=== PATIENT | female | born 1950 | race Two or more races ===

== ENCOUNTER 2022-11-13 08:00 | Outpatient (CLI) | payer OTHER ==
[~2022-11-13] VITALS: Ht 167.6 cm; Wt 70.8 kg
[2022-11-13] MEDS ORDERED: GLUCOVAN (15:22)
[2022-11-13] MEDS ORDERED: GABAPENTIN300 M2 PO (15:23)
== END 2022-11-13 14:06 | disposition home or self-care (01) ==
LOC: LAB 08:00 → SURG 11-17 07:00 → EDSTATUS 11-17 11:00
PROVIDERS: ATTEND Orthopaedic Surgery Sports Medicine
DX: Z01.812 Encounter for preprocedural laboratory examination (principal); M17.12 Unilateral primary osteoarthritis, left knee

== ENCOUNTER 2023-02-23 07:48 | Outpatient (CLI) | payer OTHER ==
[~2023-02-23 07:48] MED LIST: GABAPENTIN300 M2 PO; GLUCOVAN
== END 2023-02-23 07:54 | disposition home or self-care (01) ==
LOC: NUCLEAR 07:48
PROVIDERS: ATTEND Internal Medicine
DX: R00.2 Palpitations (principal); E11.9 Type 2 diabetes mellitus without complications; G62.9 Polyneuropathy, unspecified
CPT/HCPCS: 78452; 93017; A9500; J0153

== ENCOUNTER 2024-04-01 08:15 | Inpatient (IN) | payer OTHER ==
[~2024-04-01] VITALS: Ht 167.6 cm; Wt 71.7 kg
[2024-04-01 10:57] LABS: URINE APPEARANCE Clear; URINE BILIRRUBIN Negative (NEGATIVE); URINE BLOOD Negative; URINE COLOR Yellow; URINE GLUCOSE Negative (NEGATIVE); URINE KETONE Negative (NEGATIVE); URINE LEUKOCYTE Small; URINE NITRATE Negative; URINE PROTEIN Trace (NEGATIVE); URINE UROBILINOGEN 0.2 E.U./dl
[2024-04-01 10:59] LABS: HEMATOCRIT 33.7 % (36.0-45.00); HEMOGLOBIN 11.6 g/dL (12.0-15.00); MEAN CELL VOLUME 89.9 fL (80.00-100.00); MEAN CORPUSCULAR HEMOGLOBIN 30.8 pg (27.00-32.0); MEAN CORPUSCULAR HGB CONC 34.3 g/dl (32.0-36.0); PLATELET COUNT 247 K/uL (150-450); RED BLOOD COUNT 3.75 M/uL (4.00-6.00); RED CELL DISTRIBUTION WIDTH 14.3 % (11.5-14.5); URINE EPITHELIAL CELLS 33.2 uL (0.0-38.8); URINE WBC 76.1 uL (0.0-23.2)
[2024-04-01 11:03] LABS: URINE CAST 0.15 uL (0.0-1.40); URINE RBC 1.3 uL (0.0-20.8)
[2024-04-01] MEDS ORDERED: CATAFLAN (11:03)
[2024-04-01 11:54] LABS: INR 1.01; PARTIAL THROMBOPLASTIN TIME 28.8 SECONDS (22.0-34.0)
[2024-04-01 12:00] LABS: BILIRUBIN TOTAL 0.37 mg/dL (0.3-1.2); CALCIUM 9.6 mg/dL (8.5-10.1); CREATININE SERUM 1.01 mg/dL (0.55-1.02); GFR 53.88; GLOBULINA 3.3 G/DL (2.4-3.5); POTASSIUM 4.63 mEq/L (3.5-5.1); TOTAL PROTEIN 7.3 gm/dL (6.4-8.2)
[2024-04-04 09:58] LABS: RH POSITIVE
[2024-04-04] MEDS ORDERED: LIDOCAINE HCL 1%/EPINEPHRINE 20ML VIAL IJ ONE (21:00)
[2024-04-04] MEDS ORDERED: TRANEXAMIC ACID 100MG/1ML (1000MG) AMPUL IV ONE ×2 (21:00→21:15)
[2024-04-04] MEDS ORDERED: BUPIVACAINE HCL/PF 0.25% 30ML VIAL InF ONE (21:00)
[2024-04-04] MEDS ORDERED: MORPHINE SULFATE 4 MG/ML VIAL IV ONE ×3 (21:00→22:55)
[2024-04-04] MEDS ORDERED: KETOROLAC TROMETHAMINE 60 MG VIAL IM ONE (21:00)
[2024-04-04] MEDS ORDERED: CEFAZOLIN SODIUM 1,000 MG VIAL IV ONE (21:00)
[2024-04-04] MEDS ORDERED: ISOPROPYL ALCOHOL 30 ML OUNCE TOP ONE (21:15)
[2024-04-04] MEDS ORDERED: GENTAMICIN SULFATE 40 MG/ML VIAL IV SCH (21:54)
[2024-04-04] MEDS ORDERED: MORPHINE SULFATE 4 MG/ML CARTRIDGE IV PRN (22:00)
[2024-04-04] MEDS ORDERED: SODIUM CHLORIDE 0.45 % 1,000 ML IV SCH (22:00)
[2024-04-04] MEDS ORDERED: ONDANSETRON HCL 2 MG/ML VIAL IV PRN (22:00)
[2024-04-05] MEDS ORDERED: CEFAZOLIN SODIUM 1,000 MG VIAL IV SCH
[2024-04-05] MEDS ORDERED: TRAMADOL HCL 50 MG TABLET PO PRN (06:30)
[2024-04-05 07:50] LABS: HEMATOCRIT 26.2 % (36.0-45.00); MEAN CELL VOLUME 90.2 fL (80.00-100.00); MEAN CORPUSCULAR HEMOGLOBIN 30.5 pg (27.00-32.0); MEAN CORPUSCULAR HGB CONC 33.8 g/dl (32.0-36.0); PLATELET COUNT 210 K/uL (150-450); RED BLOOD COUNT 2.91 M/uL (4.00-6.00); RED CELL DISTRIBUTION WIDTH 14.1 % (11.5-14.5)
[2024-04-05 07:55] LABS: HEMOGLOBIN 8.9 g/dL (12.0-15.00)
[2024-04-05 08:04] LABS: HEMATOCRIT 26.3 % (36.0-45.00); HEMOGLOBIN 8.8 g/dL (12.0-15.00); RED BLOOD COUNT 2.92 M/uL (4.00-6.00)
[2024-04-05] MEDS ORDERED: SENNA/DOCUSATE SODIUM 1 TAB TABLET PO SCH (09:00)
[2024-04-05] MEDS ORDERED: FUROsemide 20 MG/2 ML VIAL IV SCH (09:00)
[2024-04-05] MEDS ORDERED: RIVAROXABAN 10 MG TAB PO SCH (09:00)
[2024-04-05] MEDS ORDERED: CELECOXIB 200 MG CAPSULE PO SCH (09:00)
[2024-04-05] MEDS ORDERED: IRON FUM,PS/FOLIC/BCOMP,C NO.9 1 CAP CAPSULE PO SCH (09:00)
[2024-04-05] MEDS ORDERED: BACITRACIN 28.35 GM OINT.TUBE TOP SCH (09:00)
[2024-04-05 10:31] VITALS: BP 129/64
[2024-04-05] MEDS ORDERED: DEXTROSE 50 % IN WATER 0.5 G/ML DISP.SYRIN IV PRN (12:45)
[2024-04-05] MEDS ORDERED: INSULIN LISPRO 1,000 UNIT/10 ML UNITS SUBCUTANEO PRN (12:45)
[2024-04-05 15:53] VITALS: BP 110/65
[2024-04-05 20:01] VITALS: BP 102/63
[2024-04-06 01:23] VITALS: BP 149/77
[2024-04-06 07:56] LABS: HEMATOCRIT 29.6 % (36.0-45.00); HEMOGLOBIN 10.5 g/dL (12.0-15.00); MEAN CELL VOLUME 87.9 fL (80.00-100.00); MEAN CORPUSCULAR HEMOGLOBIN 31.3 pg (27.00-32.0); MEAN CORPUSCULAR HGB CONC 35.6 g/dl (32.0-36.0); PLATELET COUNT 162 K/uL (150-450); RED BLOOD COUNT 3.37 M/uL (4.00-6.00); RED CELL DISTRIBUTION WIDTH 13.9 % (11.5-14.5)
[2024-04-06] MEDS ORDERED: INTEGRA PLUS C1 EACH PO (08:27)
[2024-04-06] MEDS ORDERED: Septra Ds Tablet PO (08:27)
[2024-04-06] MEDS ORDERED: TRAMADOL HCL50 MG PO (08:28)
[2024-04-06] MEDS ORDERED: XARELTO10 MG PO (08:28)
[2024-04-06] MEDS ORDERED: SULFAMETHOXAZOLE/TRIMETHOPRIM DS 1 TAB PO SCH (09:00)
[2024-04-06 10:03] VITALS: BP 122/64; O2SAT 96
[2024-04-06 14:26] VITALS: BP 134/69; O2SAT 97
== END 2024-04-06 17:17 | DRG 470 ==
LOC: SURH 04-04 08:15 → O/R 04-04 08:46 → OB/GYN 04-04 08:46 → SURH 04-04 20:15 → SURG 04-05 04:34 → O/R 04-05 04:36 → OB/GYN 04-05 08:58
PROVIDERS: ADMIT Orthopaedic Surgery Sports Medicine; ATTEND Orthopaedic Surgery Sports Medicine
PROC: 0SRD0J9 Replacement of Left Knee Joint with Synthetic Substitute, Cemented, Open Approach (ICD-10-PCS; principal; 2024-04-04 20:15)
DX: M17.12 Unilateral primary osteoarthritis, left knee (principal); D62 Acute posthemorrhagic anemia